=== PATIENT | male | born 2000 ===

== ENCOUNTER 2023-05-08 11:34 | Emergency (ER) | payer BC, SELFPAY ==
[2023-05-08 11:45] VITALS: BP 121/66; PULSE 54; RESP 16; TEMP 36.8; O2SAT 100
--- NOTE | 2023-05-08 12:25 | ED.EYEPROB ---
HPI - Eye Problem General Chief complaint: Eye Problems Stated complaint: Stye Time Seen by Provider: 05/08/23 12:16 Source: patient and RN notes reviewed Mode of arrival: ambulatory Limitations: no limitations History of Present Illness HPI Narrative: Patient presents today with a 2 month history a bump to the right upper eyelid. He has tried some [id number] topical creams and stye eyedrops without relief. He is also most recently tried some warm compresses was to have helped spread the bump out over his eyelid. Denies drainage. Related Data Allergies Allergy/AdvReac Type Severity Reaction Status Date / Time No Known Allergies Allergy Verified 05/08/23 12:07 Review of Systems Review of Systems: CONSTITUTIONAL: Denies body aches, fever, chills, or sweats. EYES: Denies visual changes, redness, or discharge. ENT: Denies rhinorrhea, congestion, sore throat, or otalgia.+ right upper eyelid bump CARDIOVASCULAR: Denies chest pain, palpitations, or edema. RESPIRATORY: Denies cough or dyspnea. GASTROINTESTINAL: Denies abdominal pain, nausea, vomiting, or diarrhea. GENITOURINARY: Denies dysuria or hematuria. SKIN: Denies rash, itching, or wounds. MUSCULOSKELETAL: Denies back pain, joint pain, or myalgia. NEUROLOGIC: Denies headache, numbness, tingling, or weakness. PSYCH: Denies depression or anxiety. PMFSH Comments At time of signature, I have reviewed and agree with nursing past medical, surgical, social and family history unless otherwise noted. Please see nursing chart for further information. There is no relevant family history pertinent to the presenting complaint Exam Narrative: GENERAL: Well-appearing, well-nourished, and in no acute distress. HEAD: Normocephalic, atraumatic. EYES: EOMI. PERRL. No redness or drainage. Conjunctivae normal. 0.5cm fluctuant, skin colored lesion to the mid right upper eyelid. No pustular head to the inner or outer aspect. Eyelashes normal. ENT: Mucous membranes pink and moist. NECK: Normal AROM. CHEST: No respiratory distress. EXTREMITIES: Normal range of motion. No edema. SKIN: Warm, dry, no rash. Capillary refill normal. Normal skin turgor. NEURO: No focal deficits. Alert and oriented x3. Gait steady. PSYCH: Normal affect. No signs of depression or anxiety. Course Course Level of Care: Express Care Visit Vital Signs Vital signs: Vital Signs Temperature 98.3 F 05/08/23 11:45 Pulse Rate 54 L 05/08/23 11:45 Respiratory Rate 16 05/08/23 11:45 Blood Pressure 121/66 05/08/23 11:45 Pulse Oximetry 100 05/08/23 11:45 Temperature 98.3 F 05/08/23 11:45 Pulse Rate 54 L 05/08/23 11:45 Respiratory Rate 16 05/08/23 11:45 Blood Pressure 121/66 05/08/23 11:45 Pulse Oximetry 100 05/08/23 11:45 Reviewed MDM - Eye Problem MDM Narrative Medical decision making narrative: Patient has been diagnosed with a stye. Will try some antibiotic eyedrops. Recommend continuing frequent warm compresses to facilitate drainage. Have instructed him to follow-up with an eye doctor for further evaluation. Patient agrees with plan. Differential Diagnosis Differential diagnosis: Likely periorbital cellulitis and other (Stye) Critical Care Time Critical Care Time Critical Care Time: No Discharge Plan Discharge Clinical Impression: Hordeolum Qualifiers: Hordeolum type: unspecified type Laterality: right Eyelid: upper Qualified Code(s): H00.011 - Hordeolum externum right upper eyelid Patient Disposition: Home, Self-Care Condition: Stable Instructions: Eve (ED) Additional Instructions: Please use the eyedrops as directed. Frequently apply warm compresses to help facilitate drainage. Follow-up with your eye doctor for further evaluation. Your blood pressure was elevated above 120/80 today at Urgent Care. This puts you above the threshold for follow up. Please schedule a followup visit with your personal physician as soon as possible
== END 2023-05-08 12:33 | disposition home or self-care (01) ==
PROVIDERS: Emergency Provider Nurse Practitioner
DX: H00.011 Hordeolum externum right upper eyelid (principal)
CPT/HCPCS: 99213; G0463